=== PATIENT | female | born 1945 | race African-American/Black ===

== ENCOUNTER 2018-05-06 18:13 | Observation (INO) | payer MEDICARE, OTHER ==
[~2018-05-06] VITALS: Ht 152.4 cm; Wt 74.8 kg
--- OUTSIDE RECORDS SUMMARY | 2018-05-06 18:16 | XMS REPORT ---
Author Author [facility] Address Unknown Phone Unavailable Care Team Providers Care Truck Sales Representative Name Role Phone Unavailable Unavailable Problems This patient has no known problems. Allergies, Adverse Reactions, Alerts This patient has no known allergies or adverse reactions. Medications This patient has no known medications. Results Test Description Test Time Test Comments Text Results Atomic Results Result Comments SCR MAMM BILATERAL LIN[place]OD CAD DIGITAL 2018-01-18 13:53:23 - SCR MAMM BILATERAL LINWOOD CAD DIGITALBILATERAL DIGITAL SCREENING MAMMOGRAM 3D/2D WITH CAD: 01/15/2018CLINICAL: Asymptomatic. Digital breast tomosynthesis was performed in addition to routine CC and MLO views. Current mammographic images were evaluated by either a [employer] M-Vu or an [employer] version 7.2 computer aided detection system. Comparison is made to exams dated 11/21/2016 mammogram, 11/30/2015 mammogram, and 11/17/2014 mammogram - [facility]-. There are scattered fibroglandular tissues in both breasts. There are benign vascular calcifications in both breasts. No suspicious mass, architectural distortion, malignant type calcification, or lymph node abnormality detected. Breast architecture is stable compared to prior exams.IMPRESSION: BENIGNThere is no mammographic evidence of malignancy. Resume annual screening mammography in one year. Padmaja milian/yvan:01/18/2018 13:53:23 Exchange Operator: Yanira Garcia, [facility]-FWletter sent: BIRADS 1-2 Normal Mammogram BI-RADS: 2 Benign
[2018-05-06] MEDS ORDERED: ASPIRIN 81 MG CHEW TAB PO ONE (18:45)
[2018-05-06 19:00] LABS: CLARITY,URINE HAZY (CLEAR); COLOR,URINE YELLOW (YELLOW)
[2018-05-06 19:01] LABS: BILIRUBIN,URINE NEGATIVE (NEGATIVE); KETONES,URINE TRACE (NEGATIVE); LEUKOCYTE ESTERASE ,URINE NEGATIVE (NEGATIVE); NITRITE,URINE NEGATIVE (NEGATIVE); PROTEIN,URINE DIPSTICK TRACE (NEGATIVE); URINE UROBILINOGEN 1 mg/dL (0.2 - 1)
[2018-05-06 19:10] LABS: BACTERIA,URINE MANY /HPF; EPITHELIAL CELLS,URINE MODERATE /LPF; RBC,URINE 0-5 /HPF (0-5)
--- NOTE | 2018-05-06 20:06 | Diagnostic Imaging Report ---
EXAMINATION: CHEST SINGLE (PORTABLE) COMPARISON: None INDICATION: ^CHEST PAIN ^[id number] ^1845 ^Y DISCUSSION: Frontal view of the chest obtained at 1922 hours. HEART AND MEDIASTINUM: The cardiomediastinal silhouette is unremarkable. LINES: None. LUNGS: Lung volumes are diminished. No pneumonia or pulmonary edema. PLEURA: No pleural effusion or pneumothorax. BONES AND SOFT TISSUES: No focal osseous lesion. The soft tissues are normal. IMPRESSION: Low lung volumes. No acute cardiopulmonary process. Signed by: Dr. Lilian Bass MD on 05/06/2018 8:03 PM
[2018-05-06 21:09] LABS: BASOPHILS # (AUTO) 0.1 (0.0-0.1); BASOPHILS % 0.6 % (0.0-1.0); EOSINOPHILS # (AUTO) 0.3 (0.0-0.4); EOSINOPHILS % 3.3 % (0.0-6.0); HEMATOCRIT 35.8 % (34.2-44.1); HEMOGLOBIN 11.4 g/dL (12.0-16.0); LYMPHOCYTES # (AUTO) 3.2 (1.0-3.2); LYMPHOCYTES % 36.4 % (18.0-39.1); MEAN CORPUSCULAR HEMOGLOBIN 29.8 pg (28-32); MEAN CORPUSCULAR HGB CONC 31.8 g/dL (31-35); MEAN CORPUSCULAR VOLUME 93.5 fL (81-99); MONOCYTES # (AUTO) 0.9 (0.2-0.8); NEUTROPHILS # (AUTO) 4.3 (2.1-6.9); NEUTROPHILS % 49.5 % (38.7-80.0); PLATELET COUNT 388 x10e3/uL (140-360); RED BLOOD COUNT 3.83 x10e6/uL (3.6-5.1); RED CELL DISTRIBUTION WIDTH 13.6 % (11.7-14.4)
[2018-05-06 21:17] LABS: INR 0.89; PROTHROMBIN TIME 12.5 seconds (11.9-14.5)
[2018-05-06 21:18] LABS: PARTIAL THROMBOPLASTIN TIME 30.1 seconds (23.8-35.5)
[2018-05-06 21:29] LABS: ALANINE AMINOTRANSFERASE < 6 IU/L (0-55); ALBUMIN 3.4 g/dL (3.5-5.0); ALBUMIN/GLOBULIN RATIO 0.7 (0.8-2.0); ALKALINE PHOSPHATASE 110 IU/L (40-150); ANION GAP 11.3 mmol/L (8-16); BLOOD UREA NITROGEN 27 mg/dL (7-26); BUN/CREATININE RATIO 18 (6-25); CALCIUM 9.9 mg/dL (8.4-10.2); CARBON DIOXIDE 29 mmol/L (22-29); CHLORIDE 106 mmol/L (98-107); CREATINE KINASE 154 IU/L (29-168); CREATININE, SERUM 1.47 mg/dL (0.57-1.11); EST GLOMERULAR FILTRATION RATE 42 ML/MIN (60-); GLUCOSE 93 mg/dL (74-118); POTASSIUM 4.3 mmol/L (3.5-5.1); SODIUM 142 mmol/L (136-145)
[2018-05-06] MEDS ORDERED: SODIUM CHLORIDE FLUSH 10 ML SYR INJ PRN (23:00)
[2018-05-06] MEDS ORDERED: NITROGLYCERIN 0.4 MG SUBL SL PRN (23:00)
[2018-05-07] MEDS ORDERED: LISINOPRIL40 MG PO (00:17)
[2018-05-07] MEDS ORDERED: AMLODIPINE BESY10 MG PO (00:17)
--- NOTE | 2018-05-07 00:49 | NUR ---
Patient arrived via wheelchair. Received report from DEENA Hussein nurse. Call light within reach.
[2018-05-07 01:00] VITALS: BP 152/65
[2018-05-07 01:37] VITALS: BP 152/65
[2018-05-07 06:13] LABS: CREATINE KINASE MB 0.8 ng/mL (0-5.0)
[2018-05-07 06:26] LABS: CHOL/HDL RATIO 3.3 (3.0-3.6)
--- NOTE | 2018-05-07 06:50 | NUR ---
Gave report to oncoming nurse. Call light within reach. Patient in bed. NO pain or distress
[2018-05-07 07:55] VITALS: BP 132/67
--- NOTE | 2018-05-07 08:13 | NUR ---
patient resting in bed, alert with no distress, denies any chest pain this time
[2018-05-07] MEDS ORDERED: ASPIRIN 81 MG ENTERIC COATED PO SCH (09:00)
[2018-05-07 10:05] VITALS: BP 132/67
--- NOTE | 2018-05-07 11:21 | NUR ---
ALEXA signed, copied placed chart.
--- NOTE | 2018-05-07 11:36 | NUR ---
Dr Hung here for rounds, stated DC HOME, F/U WITH PCP DR. BURNETT FOR REFERRAL TO SEE DR. PAULINO NEXT WEEK
[2018-05-07 11:39] VITALS: BP 131/65
--- NOTE | 2018-05-07 12:16 | NUR ---
Patient discharged home, f/up instruction with Dr Boo given, no prescription as per Dr Hung, IV canula removed with tip intact, no infiltration , tele box returned , transported via wheelchair to [facility]
--- NOTE | 2018-05-07 12:26 | Discharge Summary ---
PRIMARY CARE PHYSICIAN: Jeremy Boo M.D. Please review my recent history and physical. The patient was discharged home today. She will follow up with Dr. Jeremy Boo, her primary care physician for referral to see Dr. Lauro Garner, her store receiver. The patient would not want to stay for a stress test on Wednesday. The patient's echocardiogram showed ejection fraction of 55% to 60%. Cardiac enzymes were negative. Workup was otherwise unremarkable. MD THAO Castaneda/MIKE /[id number]
--- NOTE | 2018-05-07 13:11 | History and Physical ---
PRIMARY CARE PHYSICIAN: Jeremy Boo M.D. CARBURETOR SPECIALIST: Lauro Garner M.D. CHIEF COMPLAINT: Chest pressure on the right side. HISTORY: A 72-year-old female has some chest pressure, chest discomfort on the last Wednesday. The patient did not have any nausea or vomiting. There is no dizziness. No diaphoresis. The patient had symptoms approximately 3 years ago, where she had normal stress test. The patient was concerned; therefore, she came to the hospital. Cardiac enzymes negative. EKG unremarkable. The patient is otherwise stable. Discussed with the patient on the findings. The patient refuses at this time to wait in the hospital for further cardiac workup. Echocardiogram showed ejection fraction of 60%. Normal sinus rhythm. Borderline ECG, no ST-T wave changes. The patient is stable. She does want to go home at this time. PAST MEDICAL HISTORY: Hypertension and possible anxiety. PAST SURGICAL HISTORY: Hysterectomy, knee replacement. SOCIAL HISTORY: The patient does not smoke or use alcohol. No recreational drugs. ALLERGIES: ACETAMINOPHEN, KEFLEX, HYDROXYCHLOROQUINE, IBUPROFEN, AND NAPROXEN. HOME MEDICATIONS: Norvasc and lisinopril. PHYSICAL EXAMINATION: VITAL SIGNS: Temperature is 98, blood pressure 132/67, pulse rate is 70, respirations 18. GENERAL: The patient is not in acute distress. She is awake, alert, oriented. HEENT: Normocephalic, atraumatic. Anicteric. NECK: Supple grossly. PULMONARY: Clear. CARDIOVASCULAR: Regular rate and rhythm. ABDOMEN: Soft and unremarkable. EXTREMITIES: No cyanosis or edema. NEUROLOGIC: No gross focal deficit. LABORATORY DATA: Sodium is 143, potassium 4.3, chloride 106, bicarb 29, BUN 27, creatinine 1.4, glucose 93. WBCs 8.7, hemoglobin 11.4, hematocrit 35.8, platelets are 388. Chest x-ray is unremarkable. Cardiac enzymes are negative. IMPRESSION: Atypical chest pain, could be secondary to musculoskeletal versus anxiety. However, the patient will need to have mastic sprayer evaluation and the patient does want to do that as an outpatient and not wait in the hospital for stress test. The patient is otherwise stable. She does want to go home and I agree. The patient will go home today. Follow up with Dr. Jeremy Boo and consult Dr. Garner, for which she saw him before. She saw Dr. Garner before for cardiac workup. The patient will be discharged home today. Resume home medications. MD THAO Castaneda/MIKE /[id number]
== END 2018-05-07 12:30 | disposition home or self-care (01) ==
LOC: ER 18:13 → ERHOLD 23:07 → IMCU 05-07 01:08
PROVIDERS: ADMIT Internal Medicine; ATTEND Internal Medicine
DX: R07.89 Other chest pain (principal); I10 Essential (primary) hypertension; F41.9 Anxiety disorder, unspecified; Z88.6 Allergy status to analgesic agent; Z88.1 Allergy status to other antibiotic agents
CPT/HCPCS: 36415 ×2; 71045; 80053; 80061; 81001; 82550 ×2; 82553 ×2; 83880; 84484 ×2; 85025; 85610; 85730; 93005; 93306; 99284; G0378 ×2

== ENCOUNTER 2019-04-29 10:23 | Emergency (ER) | payer MEDICARE ==
[~2019-04-29] VITALS: Ht 152.4 cm; Wt 74.8 kg
[~2019-04-29 10:23] MED LIST: AMLODIPINE BESY10 MG PO; LISINOPRIL40 MG PO
[2019-04-29] MEDS ORDERED: TETANUS/DIPHTHERIA TOX ADULT 0.5 ML SYR ONE (10:59)
[2019-04-29] MEDS ORDERED: TETANUS/DIPHTHERIA TOX ADULT 0.5 ML SYR IM ONE (11:00)
[2019-04-29] MEDS ORDERED: LIDOCAINE 1% 5ML-MPF INJ ONE (11:00)
[2019-04-29] MEDS ORDERED: NEOMYCIN/POLYMYX/BACITR OINT 0.9 GM PKT ONE (11:49)
[2019-04-29 11:55] VITALS: BP 136/85
[2019-05-02] MEDS ORDERED: VITAMIN D32000 UNI2 PO (05:36)
[2019-05-02] MEDS ORDERED: METOPROLOL TART25 MG PO (05:36)
[2019-05-02] MEDS ORDERED: VITAMIN C500 MG PO (05:36)
== END 2019-04-29 12:05 | disposition home or self-care (01) ==
LOC: FSED 10:23
DX: S61.412A Laceration without foreign body of left hand, initial encounter (principal); W25.XXXA Contact with sharp glass, initial encounter; Y92.002 Bathroom of unspecified non-institutional (private) residence as the place of occurrence of the external cause; I10 Essential (primary) hypertension
CPT/HCPCS: 90471; 90714; 99283

== ENCOUNTER → 2019-05-02 | Day surgery (SDC) | payer MEDICARE ==
--- NOTE | 2019-05-01 15:42 | Diagnostic Imaging Report ---
Chest, PA and lateral. History: Preoperative evaluation for hand surgery. Comparison: 05/01/2019. Discussion: The cardiomediastinal silhouette and pulmonary vasculature are within normal limits. The lungs are clear without evidence of consolidation or effusion. There are no acute osseous abnormalities. IMPRESSION: No acute cardiopulmonary abnormality. Signed by: Rigo Bird MD on 05/01/2019 3:39 PM
[2019-05-01 15:46] LABS: BASOPHILS % 0.4 % (0.0-1.0); EOSINOPHILS # (AUTO) 0.2 (0.0-0.4); EOSINOPHILS % 1.6 % (0.0-6.0); HEMATOCRIT 35.6 % (34.2-44.1); HEMOGLOBIN 11.7 g/dL (12.0-16.0); LYMPHOCYTES % 42.8 % (18.0-39.1); MEAN CORPUSCULAR HEMOGLOBIN 30.4 pg (28-32); MEAN CORPUSCULAR HGB CONC 32.9 g/dL (31-35); MEAN CORPUSCULAR VOLUME 92.5 fL (81-99); MONOCYTES # (AUTO) 0.9 (0.2-0.8); MONOCYTES % 9.4 % (4.4-11.3); NEUTROPHILS # (AUTO) 4.2 (2.1-6.9); NEUTROPHILS % 45.5 % (38.7-80.0); PLATELET COUNT 348 x10e3/uL (140-360); RED BLOOD COUNT 3.85 x10e6/uL (3.6-5.1); RED CELL DISTRIBUTION WIDTH 14.3 % (11.7-14.4)
[~2019-05-02] MED LIST changes: +BUPIVACAINE HCL 0.5% INJ 30 ML VIAL INJ ONE; +CLINDAMYCIN 600MG / 50ML 50 ML IV ONE; +DESFLURANE 240 ML BTL INH ONE; +DEXAMETHASONE SOD PHOS INJ 4 MG/ML VIAL ONE; +EPHEDRINE SULFATE INJ 50 MG/ML VIAL ONE; +FENTANYL CITRATE/PF 100MCG/2 ML INJ ONE; +LIDOCAINE HCL 2% LOCAL INJ 5 ML SDV VIAL INJ ONE; +METOPROLOL TART25 MG PO; +MUPIROCIN 2% OINT 22 GM TUBE ONE; +ONDANSETRON HCL INJ 2MG/ML 2ML 2 MG/ML VIAL ONE; +PROPOFOL IV EMULSION 10 MG/ML 20 ML VIAL ONE; +VITAMIN C500 MG PO; +VITAMIN D32000 UNI2 PO
[2019-05-02 09:20] VITALS: BP 119/65
--- NOTE | 2019-05-02 09:48 | Operative Report ---
DATE OF PROCEDURE: 05/02/2019 SURGEON: Duglas Rivers MD PREOPERATIVE DIAGNOSIS: Laceration of left hand. POSTOPERATIVE DIAGNOSES: 1. Laceration of left index finger, extensor digitorum communis tendon. 2. Laceration of left ring finger, extensor digitorum communis tendon. PROCEDURES: 1. Exploration of penetrating wound, left hand. 2. Repair of extensor tendon, left index, left ring finger. ANESTHESIA: General. HISTORY: The patient is a 73-year-old [id number] female, who on of the month sustained a laceration due to broken glass on the dorsal aspect of the left hand. She was seen at the [facility] where initial exploration of the wound showed multiple lacerated tendons. The wound was irrigated and closed. The patient was referred for hand surgery evaluation. In the office, it was noted that the patient had absent extension of the index and weakened extension of the ring finger. The risks, benefits, and alternatives were discussed with the patient and she is prepared to undergo the procedure as outlined. PROCEDURE IN DETAIL: The patient was marked preoperatively in the holding area. She was brought to the operating theater and after the induction of adequate general anesthesia, she was prepped and draped in a supine position and a time-out was performed. The laceration extends along the dorsal aspect of the hand beginning at the first web space and extending across the dorsum towards the little finger for a distance of 6-7 cm. It was just distal to the extensor retinaculum. The left upper extremity was exsanguinated and the tourniquet was inflated to a pressure of 250 mmHg. The sutures placed in the emergency room were then removed and the wound was gently teased apart. There was hematoma formation and this was irrigated and removed. In the subcutaneous space, it was noted that complete laceration of the EDC to the index as well as to the ring finger. The tendon ends were then freshened up sharply by debriding them and then repair of the index finger EDC was carried out in a [id number] fashion utilizing 4-0 Supramid suture. The proximal and distal ends of the ring finger extensor tendon were also freshened up sharply and they were repaired utilizing 4-0 Supramid in a [id number] fashion as well. At this point, the wound was copiously irrigated with bacteriostatic saline and the skin approximated with 5-0 nylon in an interrupted horizontal mattress fashion. A Marcaine field block was performed at the operative site. The tourniquet was deflated. All the fingers pinked up nicely and a sterile bulking conforming bandage was applied. A fiberglass splint was fashioned and based volarly, keeping the wrist in slight amount of extension and the MPs and IPs in full extension and this was held in place with a loosely wrapped Kurtis wrap. The patient tolerated the procedure well and was brought to the recovery room in satisfactory condition and discharged with a postoperative instruction sheet as well as a followup appointment. [place] [facility] website was checked for the patient's postoperative analgesic prescription. MD DEENA Page/MIKE /[id number]
== END | disposition home or self-care (01) ==
LOC: OR 05:18
PROVIDERS: ATTEND Plastic Surgery
DX: S66.321A Laceration of extensor muscle, fascia and tendon of left index finger at wrist and hand level, initial encounter (principal); S66.325A Laceration of extensor muscle, fascia and tendon of left ring finger at wrist and hand level, initial encounter; S61.211A Laceration without foreign body of left index finger without damage to nail, initial encounter; S61.215A Laceration without foreign body of left ring finger without damage to nail, initial encounter; I10 Essential (primary) hypertension; E66.9 Obesity, unspecified; W25.XXXA Contact with sharp glass, initial encounter; Z88.1 Allergy status to other antibiotic agents; Z88.8 Allergy status to other drugs, medicaments and biological substances; Z01.810 Encounter for preprocedural cardiovascular examination; Z01.818 Encounter for other preprocedural examination
CPT/HCPCS: 26418 ×2; 36415; 71046; 85025; 93005 ×2; C1713; J1100; J2001; J2405; J2704; J3010

== ENCOUNTER 2019-06-07 16:40 | Outpatient (RCR) | payer MEDICARE ==
[~2019-06-07 16:40] MED LIST changes: -BUPIVACAINE HCL 0.5% INJ 30 ML VIAL INJ ONE; -CLINDAMYCIN 600MG / 50ML 50 ML IV ONE; -DESFLURANE 240 ML BTL INH ONE; -DEXAMETHASONE SOD PHOS INJ 4 MG/ML VIAL ONE; -EPHEDRINE SULFATE INJ 50 MG/ML VIAL ONE; -FENTANYL CITRATE/PF 100MCG/2 ML INJ ONE; -LIDOCAINE HCL 2% LOCAL INJ 5 ML SDV VIAL INJ ONE; -MUPIROCIN 2% OINT 22 GM TUBE ONE; -ONDANSETRON HCL INJ 2MG/ML 2ML 2 MG/ML VIAL ONE; -PROPOFOL IV EMULSION 10 MG/ML 20 ML VIAL ONE
== END 2019-06-08 ==
LOC: OT 16:40
PROVIDERS: ATTEND Plastic Surgery
DX: S66.121D Laceration of flexor muscle, fascia and tendon of left index finger at wrist and hand level, subsequent encounter (principal); S66.125 Laceration of flexor muscle, fascia and tendon of left ring finger at wrist and hand level; M79.642 Pain in left hand; M25.532 Pain in left wrist; M25.642 Stiffness of left hand, not elsewhere classified; M25.632 Stiffness of left wrist, not elsewhere classified; R53.1 Weakness

== ENCOUNTER 2019-06-28 16:00 | Outpatient (RCR) | payer MEDICARE | END 2019-07-09 | LOC: OT 16:00 | PROVIDERS: ATTEND Plastic Surgery | DX: S66.121D Laceration of flexor muscle, fascia and tendon of left index finger at wrist and hand level, subsequent encounter (principal); S66.125 Laceration of flexor muscle, fascia and tendon of left ring finger at wrist and hand level; M79.642 Pain in left hand; M25.642 Stiffness of left hand, not elsewhere classified; M25.442 Effusion, left hand; M25.532 Pain in left wrist; M25.632 Stiffness of left wrist, not elsewhere classified; R53.1 Weakness ==

== ENCOUNTER 2021-03-28 19:08 | Emergency (ER) | payer MEDICARE ==
[~2021-03-28] VITALS: Ht 152.4 cm; Wt 74.8 kg
[2021-03-28] MEDS ORDERED: ACETAMINOPHEN 325 MG TAB PO ONE (20:00)
[2021-03-28] MEDS ORDERED: ACETAMINOPHEN 325 MG TAB ONE (20:33)
== END 2021-03-28 23:00 | disposition home or self-care (01) ==
LOC: FSED 19:20
DX: R51.9 Headache, unspecified (principal); I10 Essential (primary) hypertension
CPT/HCPCS: 70450; 80053; 85025; 99284

== ENCOUNTER 2024-05-10 16:52 | Emergency (ER) | payer MEDICARE ==
[~2024-05-10] VITALS: Ht 142.2 cm; Wt 69.6 kg
[2024-05-10 16:58] VITALS: PULSE 74; RESP 18; TEMP 98; O2SAT 96
[2024-05-10] MEDS ORDERED: ATORVASTATIN CA10 MG PO (17:21)
[2024-05-10] MEDS ORDERED: LATANOPROST2.5 ML OP (17:21)
[2024-05-10] MEDS ORDERED: RESTASIS1 EACH (17:21)
[2024-05-10] MEDS ORDERED: HYDROCHLOROTHIA25 MG PO (17:21)
[2024-05-10] MEDS ORDERED: DORZOLAMIDE-TIM10 ML OP (17:21)
[2024-05-10] MEDS ORDERED: KETOROLAC TROMETHAMINE 60 MG/2 ML VIAL IM ONE (17:30)
[2024-05-10] MEDS: CYCLOBENZAPRINE HCL 10 MG TAB PO ONE (17:47)
[2024-05-10] MEDS: ACETAMINOPHEN 325 MG TAB PO ONE (17:47)
[2024-05-10] MEDS ORDERED: CYCLOBENZAPRINE5 MG PO (19:16)
== END 2024-05-10 19:32 | disposition home or self-care (01) ==
LOC: FSED 17:09
DX: M54.2 Cervicalgia (principal); M62.838 Other muscle spasm; M25.512 Pain in left shoulder; V43.52XA Car driver injured in collision with other type car in traffic accident, initial encounter; Y92.488 Other paved roadways as the place of occurrence of the external cause; I10 Essential (primary) hypertension; E78.5 Hyperlipidemia, unspecified; Z96.653 Presence of artificial knee joint, bilateral
CPT/HCPCS: 72125; 99283